=== PATIENT | female | born 1940 | race African-American/Black ===

== ENCOUNTER 2017-07-17 18:01 | Emergency (ER) | payer BC, OTHER ==
[~2017-07-17] VITALS: Ht 157.5 cm; Wt 83.9 kg
[2017-07-17] MEDS ORDERED: ONDANSETRON HCL 4 MG/2 ML VIAL IM ONE (19:45)
[2017-07-17] MEDS ORDERED: METHOCARBAMOL 500 MG TAB PO ONE (19:45)
[2017-07-17] MEDS ORDERED: HYDROmorphone HCL 2 MG/ML VL IM ONE (19:45)
[2017-07-17] MEDS ORDERED: cloNIDine HCL 0.1 MG TAB PO ONE (19:45)
[2017-07-17 21:35] VITALS: BP 137/54
== END 2017-07-17 22:28 | disposition home or self-care (01) ==
LOC: ER 18:09
DX: M75.91 Shoulder lesion, unspecified, right shoulder (principal); E78.5 Hyperlipidemia, unspecified; I12.9 Hypertensive chronic kidney disease with stage 1 through stage 4 chronic kidney disease, or unspecified chronic kidney disease; N18.2 Chronic kidney disease, stage 2 (mild); Z88.8 Allergy status to other drugs, medicaments and biological substances; Z88.6 Allergy status to analgesic agent
CPT/HCPCS: 71111; 71250; 73030; 93005; 96372; 99284; J1170; J2405